=== PATIENT | female | born 1995 | race Caucasian/White ===

== ENCOUNTER 2017-04-13 13:14 | Emergency (ER) | payer MEDICAID ==
[~2017-04-13] VITALS: Ht 152.4 cm; Wt 93.9 kg
--- OUTSIDE RECORDS SUMMARY | 2017-04-13 13:24 | External Medical Summary Rpt ---
Author Author , Organization [facility] Address Unknown Phone Unavailable Care Team Providers Care Casket Inspector Name Role Phone ROCHELLE BYRD Unavailable Unavailable ROCHELLE BYRD Unavailable Unavailable Purpose Continuity of Care Document - 11-25-2016 through 2016 Problems Code Diagnosis DOS Provider Status Z0100 ENCOUNTER 11-25-2016 ROCHELLE EXAM EYES & VISION W/O ABNORMAL FIND Procedures Procedure DOS Code Location Performer Comment [place] [address] ROCHELLE BYRD [facility] [address] [place] [place] [address] ROCHELLE BYRD [facility] 7 XM&EVAL COMPRE NEW PT 1/> VST
--- OUTSIDE RECORDS SUMMARY | 2017-04-13 13:24 | External Medical Summary Rpt ---
Author Author , Organization [facility] Address Unknown Phone Unavailable Care Team Providers Care Finishing Room Operator Name Role Phone ROCHELLE BYRD Unavailable Unavailable ROCHELLE BYRD Unavailable Unavailable Purpose Continuity of Care Document - 11-25-2016 through 2016 Problems Code Diagnosis DOS Provider Status Z0100 ENCOUNTER 11-25-2016 ROCHELLE EXAM EYES & VISION W/O ABNORMAL FIND Procedures Procedure DOS Code Location Performer Comment O[facility] [address] ROC[facility] 7 XM&EVAL COMPRE NEW PT 1/> VST [place] [address] ROCHELLE BYRD TION 7 [place]F[facility] [place]
--- OUTSIDE RECORDS SUMMARY | 2017-04-13 13:24 | External Medical Summary Rpt ---
Author Author , Organization [facility] Address Unknown Phone Unavailable Care Team Providers Care Stocking Inspector Name Role Phone ROCHELLE BYRD Unavailable Unavailable ROCHELLE BYRD Unavailable Unavailable Purpose Continuity of Care Document - 11-25-2016 through 2016 Problems Code Diagnosis DOS Provider Status Z0100 ENCOUNTER 11-25-2016 ROCHELLE EXAM EYES & VISION W/O ABNORMAL FIND Procedures Procedure DOS Code Location Performer Comment [place] [address] ROCHELLE BYRD T[facility] [place] [address] ROCHELLE BY[facility] 7 XM&EVAL COMPRE NEW PT 1/> VST
--- OUTSIDE RECORDS SUMMARY | 2017-04-13 13:24 | External Medical Summary Rpt ---
Author Author , Organization [facility] Address Unknown Phone Unavailable Purpose Continuity of Care Document - 1995 through 2016 Immunization Name Date Route CVX Reacti Commen Provid Is Given on t er Refuse d Tdap, Histor H149 No Adsorb 2007 ical ed Inform ation - Source Unspec ified MMR Histor H149 No 1999 ical Inform ation - Source Unspec ified DTaP, Histor H149 No UF 1999 ical Inform ation - Source Unspec ified Polio- Histor H149 No OPV 1999 ical Inform ation - Source Unspec ified Varice Histor H149 No lla 1996 ical Inform ation - Source Unspec ified MMR Histor H196 No 1995 ical Inform ation - Source Unspec ified DTP-Hi Histor H196 No b 1995 ical Inform ation - Source Unspec ified Hep B, Histor H196 No UF 1995 ical Inform ation - Source Unspec ified Polio- Histor H196 No OPV 1995 ical Inform ation - Source Unspec ified DTP-Hi Histor H196 No b 1995 ical Inform ation - Source Unspec ified
--- OUTSIDE RECORDS SUMMARY | 2017-04-13 13:24 | External Medical Summary Rpt ---
Author Author , Organization [facility] Address Unknown Phone Unavailable Care Team Providers Care Carpenter Packing Name Role Phone ROCHELLE BYRD Unavailable Unavailable ROCHELLE BYRD Unavailable Unavailable Purpose Continuity of Care Document - 11-25-2016 through 2016 Problems Code Diagnosis DOS Provider Status Z0100 ENCOUNTER 11-25-2016 ROCHELLE EXAM EYES & VISION W/O ABNORMAL FIND Procedures Procedure DOS Code Location Performer Comment OPHTH [address] ROCHELLE BY[facility] 7 XM&EVAL COMPRE NEW PT 1/> VST [place] [address] ROCHELLE BYRD TION [address] [place] [place]
--- NOTE | 2017-04-13 13:49 | Urgent Treatment Center Report ---
History of Present Issue Date/Time Seen by Provider 04/13/17 4328 Visit Reason Pt arrived:Walked Presenting Problem:RIGHT EAR PAIN AND SORE THROAT X 2 WEEKS. PT WAS TREATED AT [facility] 1 WEEK AGO FOR POSSIBLE ALLERGIES WITH NO RELIEF. Location if Accident: Onset of symptoms date/time:03/30/1703/11/1000 or onset unknown for: Have you (or family members/close friends) recently traveled outside the [place]? N If Yes, where/when: Have you had exposure to infectious disease within the past month? TB? Other? Specify: Here w/ mom (who has same symptoms starting one week earlier) c/o continued sore throat "for over 2 weeks now" and right ear pain x 3-4 days. Seen at clinic "about one week ago" dx allergies. Feeling worse and now ear pain despite bendadryl and flonase w/ robitussin. Denies fever, aches, chills but mother reporting they are both miserable and here for an antibiotic today. Source patient, family Exam Limitations no limitations History Medical History General CAD? No Angina: No VT: No Hypertension? No Hyperlipidemia? No CHF? No DVT? No PE? No COPD? No Asthma? No Anemia? No GERD? No Gastric ulcers? No GI Bleed? No Hernia? No Thyroid Problems? No Hypothyroidism? No CVA? No Seizures? No Diabetes? No Renal Insuffiency? No UTI? No Stones? No BPH? No GB Disease: No Nephritic Syndrome? No Asplenia? No Hepatitis? No Sickle Cell Disease? No Arthritis? No Migraines? No Cataracts? No Glaucoma? No MRSA? No HIV? No TB? No Anxiety? No Depression? No Cancer? No More? 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 denies: ear discharge, throat swelling. Respiratory denies shortness of breath, denies wheezing Cardiovascular denies chest pain Gastrointestinal denies no symptoms reported Skin denies rash Psychiatric/Neurological denies headache Physical Exam Vital Signs Vital Signs Date Time Temp Pulse Resp B/P Pulse O2 O2 Flow FiO2 Ox Delivery Rate 04/13 1415 98.5 88 18 112/77 100 04/13 1337 98.5 88 18 112/77 100 General Appearance normal appearance, no apparent distress Eye Exam - bilateral eye normal exam Ear, Nose, Throat nasal congestion, pharyngeal erythema, roberth eacs and TMs normal Neck non-tender, supple Respiratory Status Yes: non productive cough. No: respiratory distress, use of accessory muscles. Lung Sounds anterior: lungs clear. posterior: lungs clear. bilateral: lungs clear. Cardiovascular regular rate/rhythm, no peripheral edema, no murmur Neurologic alert Skin normal color, warm/dry Lymphatic no adenopathy Medical Decision Making LABS/Meds/Orders Pt receiving controlled substance in ED? No Departure Departure Time of Disposition 1404 Disposition DC Home or Self Care(routine) Clinical Impression Primary Impression: Upper respiratory infection Qualifiers: URI type: acute pharyngitis Pharyngitis/tonsillitis etiology: unspecified etiology Qualified Code: J02.9 - Acute pharyngitis, unspecified Condition STABLE Referrals NO REFERRAL Primary Care provider IMMEDIATELY for new or worsening symptoms OR no noticeable improvement over the next 48-72 hours. 911 for difficulty breathing or swallowing. Patient Instructions DI for Pharyngitis/Tonsillopharyngitis -- Adult Additional Instructions * Monitor Temp. Tylenol every 4 hours as needed and/or ibuprofen every 6 hours as needed (as long as your primary care doctor has told you that it is ok to take both) for fever/aches/pain. ER if fever no less than 101 despite tylenol and ibuprofen * Encourage fluids, water, gatorade, powerade, pedialyte if infant/toddler/child * warm salt water gargles * warm fluids * sore throat lozenges * sleep elevated * humidifier/vaporizer * flonase 2 sprays each nostril daily but may take 2-3 days to notice improvement with it. Follow up IMMEDIATELY for new or worsening symptoms OR no noticeable improvement over the next 48-72 hours. 911 for difficulty breathing or swallowing. Discharge Counseling Counseled pt/family regarding diagnosis, medications/RX, home care, follow up needs Prescriptions Current Visit Scripts AMOXICILLIN (Amoxicillin 875MG Tab) 875 MG PO BID #20 TAB at 2043
--- NOTE | 2017-04-13 13:49 | Urgent Treatment Center Report ---
History of Present Issue Date/Time Seen by Provider 04/13/17 3838 Visit Reason Pt arrived:Walked Presenting Problem:RIGHT EAR PAIN AND SORE THROAT X 2 WEEKS. PT WAS TREATED AT [facility] 1 WEEK AGO FOR POSSIBLE ALLERGIES WITH NO RELIEF. Location if Accident: Onset of symptoms date/time:03/30/1703/11/1000 or onset unknown for: Have you (or family members/close friends) recently traveled outside the [place]? N If Yes, where/when: Have you had exposure to infectious disease within the past month? TB? Other? Specify: Here w/ mom (who has same symptoms starting one week earlier) c/o continued sore throat "for over 2 weeks now" and right ear pain x 3-4 days. Seen at clinic "about one week ago" dx allergies. Feeling worse and now ear pain despite bendadryl and flonase w/ robitussin. Denies fever, aches, chills but mother reporting they are both miserable and here for an antibiotic today. Source patient, family Exam Limitations no limitations History Medical History General CAD? No Angina: No DE: No Hypertension? No Hyperlipidemia? No CHF? No DVT? No PE? No COPD? No Asthma? No Anemia? No GERD? No Gastric ulcers? No GI Bleed? No Hernia? No Thyroid Problems? No Hypothyroidism? No CVA? No Seizures? No Diabetes? No Renal Insuffiency? No UTI? No Stones? No BPH? No GB Disease: No Nephritic Syndrome? No Asplenia? No Hepatitis? No Sickle Cell Disease? No Arthritis? No Migraines? No Cataracts? No Glaucoma? No MRSA? No HIV? No TB? No Anxiety? No Depression? No Cancer? No More? 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 denies: ear discharge, throat swelling. Respiratory denies shortness of breath, denies wheezing Cardiovascular denies chest pain Gastrointestinal denies no symptoms reported Skin denies rash Psychiatric/Neurological denies headache Physical Exam Vital Signs Vital Signs Date Time Temp Pulse Resp B/P Pulse O2 O2 Flow FiO2 Ox Delivery Rate 04/13 1415 98.5 88 18 112/77 100 04/13 1337 98.5 88 18 112/77 100 General Appearance normal appearance, no apparent distress Eye Exam - bilateral eye normal exam Ear, Nose, Throat nasal congestion, pharyngeal erythema, roberth eacs and TMs normal Neck non-tender, supple Respiratory Status Yes: non productive cough. No: respiratory distress, use of accessory muscles. Lung Sounds anterior: lungs clear. posterior: lungs clear. bilateral: lungs clear. Cardiovascular regular rate/rhythm, no peripheral edema, no murmur Neurologic alert Skin normal color, warm/dry Lymphatic no adenopathy Medical Decision Making LABS/Meds/Orders Pt receiving controlled substance in ED? No Departure Departure Time of Disposition 1404 Disposition DC Home or Self Care(routine) Clinical Impression Primary Impression: Upper respiratory infection Qualifiers: URI type: acute pharyngitis Pharyngitis/tonsillitis etiology: unspecified etiology Qualified Code: J02.9 - Acute pharyngitis, unspecified Condition STABLE Referrals NO REFERRAL Primary Care provider IMMEDIATELY for new or worsening symptoms OR no noticeable improvement over the next 48-72 hours. 911 for difficulty breathing or swallowing. Patient Instructions DI for Pharyngitis/Tonsillopharyngitis -- Adult Additional Instructions * Monitor Temp. Tylenol every 4 hours as needed and/or ibuprofen every 6 hours as needed (as long as your primary care doctor has told you that it is ok to take both) for fever/aches/pain. ER if fever no less than 101 despite tylenol and ibuprofen * Encourage fluids, water, gatorade, powerade, pedialyte if infant/toddler/child * warm salt water gargles * warm fluids * sore throat lozenges * sleep elevated * humidifier/vaporizer * flonase 2 sprays each nostril daily but may take 2-3 days to notice improvement with it. Follow up IMMEDIATELY for new or worsening symptoms OR no noticeable improvement over the next 48-72 hours. 911 for difficulty breathing or swallowing. Discharge Counseling Counseled pt/family regarding diagnosis, medications/RX, home care, follow up needs Prescriptions Current Visit Scripts AMOXICILLIN (Amoxicillin 875MG Tab) 875 MG PO BID #20 TAB at 2043
[2017-04-13] MEDS ORDERED: AMOXICILLIN875 MG PO (14:06)
[2017-04-13 14:15] VITALS: BP 112/77
== END 2017-04-13 14:16 | disposition home or self-care (01) ==
LOC: UTC 13:14
DX: J02.9 Acute pharyngitis, unspecified (principal)